=== PATIENT | female | born 1985 | race Caucasian/White ===

== ENCOUNTER 2017-09-29 14:25 | Emergency (ER) | payer SELFPAY ==
--- NOTE | 2017-09-29 15:04 | UC ---
HPI Febrile Illness - HPI Summary HPI Summary: 32 year female with Diarrhea, nausea, myalgias x 3 days, Vomiting Tuesday and Tuesday, none today. Denies any abdominal pain. Denies any urinary symptoms. Denies sore throat or nasal congestion. Lightheadedness starting around 11 am today. Her daughter in law was sick with GI illness last week. No blood in vomit or diarrhea. no traveling. no uncooked food. no fever. no abdominal pain [ End ] - History of Current Complaint Chief Complaint: [facility]CGI Time Seen by Provider: 09/29/17 14:56 Hx Obtained From: Patient Hx Last Menstrual Period: started 09/25/2017 Timing: Constant Pain Intensity: 0 - Allergy/Home Medications Allergies/Adverse Reactions: Allergies Allergy/AdvReac Type Severity Reaction Status Date / Time No Known Allergies Allergy Verified 09/29/17 14:38 Home Medications: Home Medications Ibuprofen TAB* [Advil TAB*] 400 mg PO Q6H PRN 09/29/17 [History Confirmed ] PMH/Surg Hx/FS Hx/Imm Hx Previously Healthy: Yes - Surgical History Surgical History: Yes Surgery Procedure, Year, and Place: appendectomy at age 17 - Family History Known Family History: Positive: None - Social History Occupation: Employed Full-time Lives: With Family Alcohol Use: Occasionally Substance Use Type: None Smoking Status (MU): Never Smoked Tobacco Review of Systems Constitutional: Negative Skin: Negative Eyes: Negative ENT: Negative Respiratory: Negative Cardiovascular: Negative Gastrointestinal: Negative, Vomiting, Diarrhea, Nausea Genitourinary: Negative Motor: Negative Neurovascular: Negative Musculoskeletal: Negative Neurological: Negative Psychological: Negative Is Patient Immunocompromised?: No All Other Systems Reviewed And Are Negative: Yes Physical Exam Triage Information Reviewed: Yes Appearance: Well-Appearing, No Pain Distress, Well-Nourished Vital Signs: Initial Vital Signs Temp 99.4 F 09/29/17 14:39 Pulse 84 09/29/17 14:39 Resp 18 09/29/17 14:39 BP 132/90 09/29/17 14:39 Pulse Ox 98 09/29/17 14:39 Eye Exam: Normal ENT Exam: Normal Dental Exam: Normal Neck exam: Normal Neck: Positive: 1 Respiratory Exam: Normal Cardiovascular Exam: Normal Abdominal Exam: Normal Musculoskeletal Exam: Normal Neurological Exam: Normal Psychological Exam: Normal Skin Exam: Normal Course/Dx - Course Course Of Treatment: given zofran and feels much better. increase PO intake. if Sx worsen then go to ED - Diagnoses Clinic Provider Diagnoses: Gastroenteritis Discharge - Sign-Out/Discharge Documenting (check all that apply): Discharge/Admit/Transfer - Discharge Plan Condition: Good Disposition: HOME Prescriptions: Ondansetron ODT TAB* [Zofran 4 MG Odt TAB*] 4 mg PO Q8H PRN #14 tab.odt PRN Reason: Nausea Patient Education Materials: Gastroenteritis (ED) Referrals: No Primary Care Phys,NOPCP [Primary Care Provider] - 4 Days - Billing Disposition and Condition Condition: GOOD Disposition: HOME
[2017-09-29] MEDS ORDERED: Ondansetron ODT TAB* 4 MG PO ONE (15:05)
== END 2017-09-29 15:50 | disposition home or self-care (01) ==
LOC: UCEAST 14:25
DX: K52.9 Noninfective gastroenteritis and colitis, unspecified (principal)
CPT/HCPCS: 99202; A9270-GY; G0463